=== PATIENT | female | born 1975 | race Caucasian/White ===

== ENCOUNTER 2021-02-08 10:21 | Outpatient (CLI) | payer BC, SELFPAY ==
--- NOTE | ~2021-02-08 | CT_ITS ---
EXAMINATION: CTA chest PE protocol DATE: 02/08/2021 10:52 INDICATION: Chest pain and shortness of breath TECHNIQUE: Computed tomography angiography (CTA) of the chest was performed with 100 mL Omnipaque-350 intravenous contrast timed to evaluate the pulmonary arteries. Coronal maximum intensity projection 3D-reconstructions were created by the technologist. The dose-length product (DLP) was 503.13 mGy-cm. Automated exposure control and iterative reconstruction technique were employed. COMPARISON: None. FINDINGS: The pulmonary arteries are well-opacified. No pulmonary embolism is identified. There is mi ld dependent atelectasis. The lungs are free of focal airspace opacities. There is no pleural effusio n or pneumothorax. No pathologically enlarged thoracic lymph nodes are identified. The heart size is normal. There is mild thoracic spondylosis. IMPRESSION: 1. No pulmonary embolism or acute cardiopulmonary abnormality. Reviewed, dictated and finalized at location A.
== END 2021-02-08 10:22 | disposition home or self-care (01) ==
LOC: ANHIMG 10:24
PROVIDERS: PCP Family Medicine; Visit Provider Nurse Practitioner
DX: R07.9 Chest pain, unspecified (principal)
CPT/HCPCS: 71275; Q9967

== ENCOUNTER 2021-02-22 10:11 | Outpatient (CLI) | payer BC, SELFPAY ==
--- NOTE | 2021-02-22 19:52 | P.PCNPFT_ITS ---
PFT Procedure Performed PFT Procedure Performed Spirometry with Pre/Post Bronchodilator Plethysmography (Lung Vol) Diffusing Cap (DLCO) Flow Vol Loop PFT Interpretation lung volumes were measured with the body plethysmography method. Lung volumes are unremarkable. Spirometry showed normal expiratory flow rates and a dim inished FEV1 to FVC ratio of 67%. Following administration of a bronchodilator there was no significant increase in expiratory flow rates. The flow volume loop shows a plateau of the expiratory flows suggestive of possible variable intrathoracic obstruction. Alternatively, this could be due to poor patient effort as peak expiratory flow rate was diminished at 57% predicted. The diminished FEV1 to FVC ratio in the face of normal expiratory flow rates could be due to poor effort as well. Clinical correlation advised. The lung diffusion capacity is within the normal range. Impression: Lung volumes and lung diffusion capacity within normal range. Flow volume loop suggestive of possible variable intrathoracic obstruction.
== END 2021-02-22 10:12 | disposition home or self-care (01) ==
LOC: ANHPFT 10:12
PROVIDERS: PCP Family Medicine; Visit Provider Nurse Practitioner
DX: Z13.9 Encounter for screening, unspecified (principal); Z86.16 Personal history of COVID-19
CPT/HCPCS: 94060; 94726; 94729